=== PATIENT | male | born 2000 | race Hispanic/Latino ===

== ENCOUNTER → 2024-05-10 | Outpatient (CLI) | payer OTHER ==
[2024-05-10 13:09] LABS: PLATELET COUNT, AUTOMATED 332 10^3/uL (150-450)
[2024-05-10 13:23] LABS: INR 1.13; PARTIAL THROMBOPLASTIN TIME 26.8 SECONDS (24.8-34.2); PROTHROMBIN TIME 14.1 SECONDS (12.5-14.5)
== END ==
LOC: M LAB 12:30
PROVIDERS: ATTEND Physical Medicine & Rehabilitation
DX: Z01.812 Encounter for preprocedural laboratory examination (principal)